=== PATIENT | male | born 1990 | race Caucasian/White ===

== ENCOUNTER 2018-09-12 12:56 | Emergency (ER) | payer OTHER, SELFPAY ==
--- NOTE | 2018-09-12 12:58 | ED_ITS ---
HPI - Fall <FAREED Smith - Last Filed: 09/12/18 21:31> General Chief Complaint: Back Pain/Injury Stated Complaint: right side rib pain from snowboarding accident Time Seen by Provider: 09/12/18 12:57 Source: patient Mode of arrival: ambulatory Limitations: no limitations History of Present Illness HPI Narrative: Healthy 27-year-old male that is a part-time smoker here for complaint of pain to his lateral right rib cage. He reports that he was snowboarding 2 days ago when he fell landing on his right rib cage area. He denies any head injury. No neck pain. No nausea vomiting. He is ambulatory into the emergency room. He reports increased pain with palpation to the area and with deep inspiration. Injury is limited to the right ribcage. No other concerns or complaints at this timeframe. complaint: fall Onset (ago): day(s) Related Data Allergies Allergy/AdvReac Type Severity Reaction Status Date / Time No Known Drug Allergies Allergy Verified 09/12/18 13:04 Review of Systems <FAREED Smith - Last Filed: 09/12/18 21:31> Constitutional Denies chills, Denies fever(s), Denies lethargy and Denies weakness Eyes Denies change in vision, Denies eye discharge, Denies irritation and Denies loss of vision ENT Ears, Nose, Mouth, and Throat: Denies change in voice, Denies neck pain and Denies sore throat Cardiovascular Denies chest pain, Denies irregular heart rhythm, Denies lightheadedness, Denies palpitations, Denies dyspnea, Denies dyspnea on exertion and Denies orthopnea Respiratory Denies cough, Denies dyspnea, Denies dyspnea on exertion and Denies wheezing Gastrointestinal Gastrointestinal: Denies abdominal pain, Denies change in bowel habits, Denies diarrhea, Denies nausea and Denies vomiting Genitourinary Denies hematuria, Denies flank pain, Denies urinary incontinence and Denies urinary urgency Musculoskeletal Denies neck pain Comments: Pain to right ribcage Integumentary/Breasts Denies pruritus, Denies erythema, Denies rash and Denies wounds Neurologic Denies confusion, Denies loss of vision and Denies weakness Psychiatric Denies anxiety, Denies confusion, Denies depression, Denies homicidal ideation and Denies suicidal ideation Endocrine Denies palpitations Hematologic/Lymphatic Denies easy bruising Allergic/Immunologic Denies wheezing Exam <FAREED Smith - Last Filed: 09/12/18 21:31> Initial Vital Signs Initial Vital Signs: Vital Signs Temperature 99.4 F 09/12/18 13:00 Pulse Rate 91 H 09/12/18 13:00 Respiratory Rate 16 09/12/18 13:00 Blood Pressure 128/88 09/12/18 13:00 Pulse Oximetry 98 09/12/18 13:00 Const General: cooperative and well developed Nutritional Appearance: well nourished Orientation: alert, awake, oriented x3 and not confused [facility] Mouth: oral mucosae normal and moist mucous membranes Eyes Conjunctivae: conjunctivae normal Sclera: sclerae normal Pupils: PERRL EOM: EOM intact bilaterally Chest Chest: normal inspection of the chest Other: Chest and right rib cage with no signs of trauma. No deformities. No ecchymosis. No swelling. Resp Effort & Inspection: normal respiratory effort, able to speak in complete sentences, no respiratory distress and no use of accessory muscles Auscultation: clear to auscultation bilaterally, no rales, no rhonchi and no wheezes Cardio Rate: regular rate Rhythm: regular rhythm Heart Sounds: no click, no gallops, no murmurs and no rubs GI Inspection: non-distended Palpation: soft, no hepatosplenomegaly, No guarding, No pulsatile mass and No tender Auscultation: normal bowel sounds Skin General: no rashes or lesions noted, No jaundice and No petechiae Neuro General: alert, oriented x3, gait normal and no focal motor deficits Speech: speech normal <Cait Izquierdo DO - Last Filed: 09/21/18 16:34> Initial Vital Signs Initial Vital Signs: Vital Signs Temperature 99.4 F 09/12/18 13:00 Pulse Rate 91 H 09/12/18 13:00 Respiratory Rate 16 09/12/18 13:00 Blood Pressure 128/88 09/12/18 13:00 Pulse Oximetry 98 09/12/18 13:00 PFSH <FAREED Smith - Last Filed: 09/12/18 21:31> Social History Smoking Status: Never smoker Course <FAREED Smith - Last Filed: 09/12/18 21:31> Orders Ordered: ED Orders 09/12/18 13:07 XR ribs RT min 3V w CXR1V Stat Vital Signs - 8 hr 09/12/18 13:50 Pulse Rate 70 Respiratory Rate 14 Blood Pressure 126/82 Pulse Oximetry 98 <Cait Izquierdo DO - Last Filed: 09/21/18 16:34> Orders Ordered: ED Orders 09/12/18 13:07 XR ribs RT min 3V w CXR1V Stat Vital Signs - 8 hr 09/12/18 13:50 Pulse Rate 70 Respiratory Rate 14 Blood Pressure 126/82 Pulse Oximetry 98 MDM - Fall <Jonah FAREED [place] - Last Filed: 09/12/18 21:31> MDM Narrative Medical decision making narrative: X-ray of the right ribs were obtained was negative for any acute fractures. Signs and symptoms presents as contusion to the right ribcage. [id number] ibuprofen as needed for discomfort. Rest area. Follow up with primary care provider. Return emergency room for any worsening symptoms. Discharge Plan Departure Patient Disposition: Home Clinical Impression: Contusion of rib on right side Qualifiers: Encounter type: initial encounter Qualified Code(s): S20.211A - Contusion of right front wall of thorax, initial encounter Discharge Date/Time: 09/12/18 13:52 Interventions: ED Discharge Assessment Last Done: 09/12/18 13:50 Instructions: DI for Rib Contusion Activity Restrictions/Additional Instructions: X-ray of the right ribs were obtained was negative for any acute fractures. Signs and symptoms presents as contusion to the right ribcage. [id number] ibuprofen as needed for discomfort. Rest area. Follow up with primary care provider. Return emergency room for any worsening symptoms. Referrals: [facility] [Provider Group] <Cait Izquierdo DO - Last Filed: 09/21/18 16:34> Cosign ED Attending Cosignature Attestation: I was immediately available in the department for consultation. This documentation has been reviewed and I agree with assessment and plan. Supervised by Cait Izquierdo DO
[2018-09-12 13:00] VITALS: BP 128/88; PULSE 91; RESP 16; TEMP 37.4; O2SAT 98; BMI 31.1
--- NOTE | 2018-09-12 13:07 | DI.RAD.S_ITS ---
PROCEDURE: XR RIBS RT MIN 3V W CXR 1V INDICATIONS: Pain to right lateral ribcage after snowboarding accident TECHNIQUE: 2 views of the right ribs were acquired, along with a single view chest. COMPARISON: None. FINDINGS: Surgical changes and devices: None. Bones and chest wall: No displaced rib fractures. No suspicious bony lesions. Overlying soft tissues appear unremarkable. Lungs and pleura: No pleural effusions or pneumothorax. Lungs appear clear. Mediastinum: Mediastinal contours appear normal. Heart size is normal. IMPRESSION: 1. No displaced rib fracture identified. Dictated by: Luigi Robles M.D. on 09/12/2018 at 13:31 Approved by: Luigi Robles M.D. on 09/12/2018 at 13:33
[2018-09-12 13:50] VITALS: BP 126/82; PULSE 70; RESP 14; O2SAT 98
== END 2018-09-12 13:52 | disposition home or self-care (01) ==
PROVIDERS: Emergency Provider Nurse Practitioner Family
DX: S20.211A Contusion of right front wall of thorax, initial encounter (principal); V00.311A Fall from snowboard, initial encounter; Y93.23 Activity, snow (alpine) (downhill) skiing, snowboarding, sledding, tobogganing and snow tubing
CPT/HCPCS: 71101; 99282; 99283